=== PATIENT | male | born 1995 | race Hispanic/Latino ===

== ENCOUNTER 2023-12-18 18:28 | Emergency (ER) | payer BC ==
[2023-12-18] MEDS ORDERED: Boostrix 0.5 ML (Tdap) VIAL (>/=7 yrs of age) ONE (18:59)
[2023-12-18] MEDS ORDERED: Lidocaine 1% (PF) 30 ML VIAL ONE (19:12)
[2023-12-18] MEDS ORDERED: Bacitracin 1 PK ONE (19:31)
== END 2023-12-18 19:55 | disposition home or self-care (01) ==
LOC: NAV ERS 18:28
DX: S62.632A Displaced fracture of distal phalanx of right middle finger, initial encounter for closed fracture (principal); S62.634A Displaced fracture of distal phalanx of right ring finger, initial encounter for closed fracture; S61.212A Laceration without foreign body of right middle finger without damage to nail, initial encounter; Z23 Encounter for immunization; X58.XXXA Exposure to other specified factors, initial encounter
CPT/HCPCS: 12001; 90471; 90715; J2001

== ENCOUNTER 2023-12-24 18:01 | Emergency (ER) | payer BC | END 2023-12-24 18:25 | disposition home or self-care (01) | LOC: NAV ERS 18:01 | DX: S61.202D Unspecified open wound of right middle finger without damage to nail, subsequent encounter (principal); W20.8XXD Other cause of strike by thrown, projected or falling object, subsequent encounter ==